=== PATIENT | male | born 1955 | race Caucasian/White ===

== ENCOUNTER 2024-10-22 07:20 | Day surgery (SDC) | payer OTHER ==
[2024-10-21 12:45] VITALS: BMI 30.2
[2024-10-22] MEDS ORDERED: MIDAZOLAM HCL 2 MG/2 ML SINGLE DOSE VIAL ONE (09:17)
[2024-10-22] MEDS ORDERED: BUPIVACAINE LIPOSOME/PF (EXPAREL) 266 MG/20 ML VIAL ONE (10:24)
[2024-10-22] MEDS ORDERED: BUPIVACAINE HCL/PF 0.5% (5MG/ML) 10 ML VIAL ONE (10:24)
[2024-10-22] MEDS ORDERED: PROPOFOL 20 ML ONE ×3 (10:28→13:57)
[2024-10-22] MEDS ORDERED: ROCURONIUM BROMIDE 50 MG/5 ML SYRINGE ONE (10:52)
[2024-10-22] MEDS ORDERED: LIDOCAINE HCL/PF 2% SDV 5ML VIAL ONE (11:20)
[2024-10-22] MEDS ORDERED: PROPOFOL 40 ML ONE (11:34)
[2024-10-22] MEDS ORDERED: ceFAZolin SODIUM 1 GM VIAL ONE (11:41)
[2024-10-22] MEDS ORDERED: TRANEXAMIC ACID 1000 MG/10 ML VIAL ONE (11:41)
[2024-10-22] MEDS ORDERED: ALBUTEROL SO4 HFA INHALER IH ONE (11:48)
[2024-10-22] MEDS ORDERED: KETOROLAC TROMETHAMINE 30 MG/1 ML VIAL ONE (11:48)
[2024-10-22] MEDS ORDERED: DEXAMETHASONE SOD PHOSPHATE 4 MG/1 ML VIAL ONE (11:48)
[2024-10-22] MEDS ORDERED: ACETAMINOPHEN INJECTION 100 ML ONE (12:11)
[2024-10-22] MEDS ORDERED: ONDANSETRON 4 MG/2 ML VIAL ONE (13:06)
[2024-10-22] MEDS ORDERED: ONDANSETRON 4 MG/2 ML VIAL IVPUSH PRN (14:40)
[2024-10-22] MEDS ORDERED: oxyCODONE HCL 5 MG TABLET PO PRN ×2 (14:40)
[2024-10-22] MEDS ORDERED: PROMETHAZINE HCL 25 MG/1 ML VIAL IVPB PRN (14:40)
[2024-10-22] MEDS ORDERED: FENTANYL CITRATE/PF 50 MCG/ML VIAL ONE ×2 (14:42→15:21)
[2024-10-22] MEDS ORDERED: LACTATED RINGERS SOLUTION 1,000 ML IV SCH (14:45)
[2024-10-22 15:35] VITALS: RESP 16
[2024-10-22 16:44] VITALS: TEMP 97.9
[2024-10-22 17:06] VITALS: BP 119/78; PULSE 78
[2024-10-22] MEDS ORDERED: KETOROLAC TROMETHAMINE 30 MG/1 ML VIAL IVPUSH SCH (18:00)
[2024-10-22] MEDS ORDERED: ACETAMINOPHEN 1000 MG/100 ML BAG IVPB ONE (18:00)
[2024-10-23] MEDS ORDERED: ACETAMINOPHEN 500 MG TABLET (FP) PO SCH
== END 2024-10-22 17:36 | disposition home or self-care (01) ==
LOC: FASU 07:20
PROVIDERS: ATTEND Orthopaedic Surgery Sports Medicine
PROC: 0SBD4ZZ Excision of Left Knee Joint, Percutaneous Endoscopic Approach (ICD-10-PCS; 2024-10-22)
PROC: 0SBD4ZZ Excision of Left Knee Joint, Percutaneous Endoscopic Approach (ICD-10-PCS; 2024-10-22)
PROC: 0QSH04Z Reposition Left Tibia with Internal Fixation Device, Open Approach (ICD-10-PCS; principal; 2024-10-22 11:50)
PROC: 0SBD4ZZ Excision of Left Knee Joint, Percutaneous Endoscopic Approach (ICD-10-PCS; 2024-10-22 11:50)
DX: S82.192A Other fracture of upper end of left tibia, initial encounter for closed fracture (principal); S83.242A Other tear of medial meniscus, current injury, left knee, initial encounter; S83.282A Other tear of lateral meniscus, current injury, left knee, initial encounter; M24.152 Other articular cartilage disorders, left hip; X58.XXXA Exposure to other specified factors, initial encounter; Y93.9 Activity, unspecified; Y92.9 Unspecified place or not applicable
CPT/HCPCS: 29855; 29880; C1713; 73560-TC-LT-FY; 94760; J0131; J0666